=== PATIENT | male | born 1990 | race Caucasian/White ===

== ENCOUNTER 2021-12-14 19:05 | Emergency (ER) | payer BC, OTHER ==
[~2021-12-14] VITALS: Ht 172.7 cm; Wt 93.0 kg
[2021-12-14 19:06] VITALS: BP 134/84
== END 2021-12-14 20:14 | disposition home or self-care (01) ==
LOC: EDH 19:05
DX: U07.1 COVID-19 (principal)
CPT/HCPCS: 99285; 71045; 87635; 84484; 93005; C9803